=== PATIENT | female | born 1965 | race African-American/Black ===

== ENCOUNTER 2017-08-27 23:29 | Emergency (ER) | payer OTHER ==
[~2017-08-27] VITALS: Ht 170.2 cm; Wt 63.6 kg
[2017-08-27] MEDS ORDERED: schizo med PO (23:36)
[2017-08-28] MEDS ORDERED: HYDROCODONE/ACETAMINOPHEN 5-325 MG TABLET PO ONE (00:30)
[2017-08-28] MEDS ORDERED: IBUPROFEN 600 MG TABLET PO ONE (00:30)
[2017-08-28 01:34] VITALS: BP 135/74
== END 2017-08-28 01:30 | disposition home or self-care (01) ==
LOC: EMS 23:30
DX: S92.422A Displaced fracture of distal phalanx of left great toe, initial encounter for closed fracture (principal); F17.210 Nicotine dependence, cigarettes, uncomplicated; W19.XXXA Unspecified fall, initial encounter; Y93.89 Activity, other specified; Y92.89 Other specified places as the place of occurrence of the external cause; Y99.8 Other external cause status
CPT/HCPCS: 29540; 99284; 99406

== ENCOUNTER 2018-03-30 22:12 | Emergency (ER) | payer OTHER ==
[~2018-03-30] VITALS: Ht 170.2 cm; Wt 61.4 kg
[~2018-03-30 22:12] MED LIST: schizo med PO
[2018-03-31] MEDS ORDERED: BUPIVACAINE HCL/PF 0.25% 10 ML VIAL INJ ONE (00:15)
[2018-03-31] MEDS ORDERED: ACETAMINOPHEN 500 MG TABLET ONE (01:05)
[2018-03-31] MEDS ORDERED: ACETAMINOPHEN 500 MG TABLET PO ONE (01:15)
[2018-03-31 01:36] VITALS: BP 124/70
== END 2018-03-31 01:36 | disposition home or self-care (01) ==
LOC: EMS 22:13
DX: S43.402A Unspecified sprain of left shoulder joint, initial encounter (principal); S40.012A Contusion of left shoulder, initial encounter; L73.2 Hidradenitis suppurativa; F12.90 Cannabis use, unspecified, uncomplicated; F20.9 Schizophrenia, unspecified; F17.210 Nicotine dependence, cigarettes, uncomplicated; W19.XXXA Unspecified fall, initial encounter; Y93.89 Activity, other specified; Y92.89 Other specified places as the place of occurrence of the external cause; Y99.8 Other external cause status
CPT/HCPCS: 10060; 73030; 99284; 99406; J3490; 29240

== ENCOUNTER 2018-05-24 11:53 | Emergency (ER) | payer OTHER ==
[~2018-05-24] VITALS: Ht 170.2 cm; Wt 65.9 kg
[2018-05-24] MEDS ORDERED: HYDR-4455 PO (11:59)
[2018-05-24] MEDS ORDERED: GABA-529 PO (11:59)
[2018-05-24 13:27] LABS: BASOPHILS % (AUTO) 1.1 % (0.0-2.0); EOSINOPHILS % (AUTO) 1.1 % (1.0-6.0); HEMATOCRIT 35.1 % (36-46); HEMOGLOBIN 11.6 g/dL (12.0-16.0); LYMPHOCYTES # (AUTO) 2.1 K/uL (1.0-4.8); LYMPHOCYTES % (AUTO) 25.1 % (22.0-44.0); MEAN CORPUSCULAR HEMOGLOBIN 32.9 pg (26.0-34.0); MEAN CORPUSCULAR HGB CONC 33.1 G/dL (31.0-37.0); MEAN CORPUSCULAR VOLUME 99 fL (80-100); MONOCYTES # (AUTO) 0.8 K/uL (0.1-1.0); MONOCYTES % (AUTO) 10.1 % (2.0-9.0); NEUTROPHILS # (AUTO) 5.2 K/uL (1.8-7.7); NEUTROPHILS % (AUTO) 62.6 % (40.0-70.0); PLATELET COUNT (AUTO) 281 K/uL (150-450); RED BLOOD CELL COUNT(AUTO) 3.53 MIL/uL (4.00-5.20); RED CELL DISTRIBUTION WIDTH 13.6 % (11.5-14.5)
[2018-05-24 13:51] LABS: ANION GAP 10 mmol/L (8-16); CALCIUM, TOTAL 8.7 mg/dL (8.8-10.5); CARBON DIOXIDE 26 mmol/L (22-29); CHLORIDE 104 mmol/L (98-107); CREATININE 0.97 mg/dL (0.60-1.30); GLOMERULAR FILTR. RATE CALC > 60 mL/min (>60); GLUCOSE,RANDOM 114 mg/dL (70-110); POTASSIUM 3.7 mmol/L (3.5-5.1); SODIUM SERUM 140 mmol/L (136-145); UREA NITROGEN, BLOOD 14 mg/dL (7-18)
[2018-05-24 13:57] LABS: ALANINE AMINOTRANSFERASE 21 U/L (12-78); ALBUMIN 3.2 g/dL (3.4-5.0); ALKALINE PHOSPHATASE 74 U/L (46-116); ASPARTATE AMINOTRANSFERASE 23 U/L (15-37); BILIRUBIN,TOTAL 0.2 mg/dL (0.1-1.0); TOTAL PROTEIN, SERUM 7.9 g/dL (6.4-8.2)
[2018-05-24 15:11] VITALS: BP 134/76
== END 2018-05-24 15:28 | disposition home or self-care (01) ==
LOC: EMS 11:54
DX: S91.002A Unspecified open wound, left ankle, initial encounter (principal); L08.9 Local infection of the skin and subcutaneous tissue, unspecified; S90.512A Abrasion, left ankle, initial encounter; F17.210 Nicotine dependence, cigarettes, uncomplicated; F12.90 Cannabis use, unspecified, uncomplicated; Z98.890 Other specified postprocedural states; F20.9 Schizophrenia, unspecified; Z79.891 Long term (current) use of opiate analgesic; Z79.899 Other long term (current) drug therapy; X58.XXXA Exposure to other specified factors, initial encounter; Y93.89 Activity, other specified; Y92.89 Other specified places as the place of occurrence of the external cause; Y99.8 Other external cause status

== ENCOUNTER 2018-06-04 11:49 | Emergency (ER) | payer OTHER ==
[~2018-06-04] VITALS: Ht 170.2 cm; Wt 63.6 kg
[~2018-06-04 11:49] MED LIST changes: +GABA-529 PO; +HYDR-4455 PO
[2018-06-04] MEDS ORDERED: CEPHALEXIN MONOHYDRATE 500 MG CAPSULE PO ONE (12:30)
[2018-06-04] MEDS ORDERED: SULFAMETHOX/TRIMETH DS 800-160 MG/TABLET PO ONE (12:30)
[2018-06-04] MEDS ORDERED: KETOROLAC TROMETHAMINE 30 MG/ML VIAL IM ONE (12:30)
[2018-06-04 13:25] VITALS: BP 118/72
== END 2018-06-04 13:39 | disposition home or self-care (01) ==
LOC: EMS 11:49
DX: L03.116 Cellulitis of left lower limb (principal); F20.9 Schizophrenia, unspecified; F12.90 Cannabis use, unspecified, uncomplicated; F17.210 Nicotine dependence, cigarettes, uncomplicated; Z59.0 Homelessness
CPT/HCPCS: 93971; 96372; 99284; 99406; J1885

== ENCOUNTER 2019-05-28 14:52 | Emergency (ER) | payer OTHER ==
[~2019-05-28] VITALS: Ht 170.2 cm; Wt 68.2 kg
[2019-05-28 14:56] VITALS: BP 111/59
[2019-05-28] MEDS ORDERED: HYDROCODONE/ACETAMINOPHEN 5-325 MG TABLET PO ONE (17:00)
[2019-05-28] MEDS ORDERED: CEPHALEXIN MONOHYDRATE 500 MG CAPSULE PO ONE (17:00)
[2019-05-28] MEDS ORDERED: PERTUSS(ACELL),DIPH,TET VAC/PF 0.5 ML VIAL IM ONE (17:15)
== END 2019-05-28 17:25 | disposition left against medical advice (07) ==
LOC: EMS 14:53
DX: T23.292A Burn of second degree of multiple sites of left wrist and hand, initial encounter (principal); T31.0 Burns involving less than 10% of body surface; F17.210 Nicotine dependence, cigarettes, uncomplicated; F12.90 Cannabis use, unspecified, uncomplicated; F19.10 Other psychoactive substance abuse, uncomplicated; Z86.19 Personal history of other infectious and parasitic diseases; Z98.890 Other specified postprocedural states; Z79.899 Other long term (current) drug therapy; X08.8XXA Exposure to other specified smoke, fire and flames, initial encounter; Y93.89 Activity, other specified; Y92.89 Other specified places as the place of occurrence of the external cause; Y99.8 Other external cause status
CPT/HCPCS: 16000; 90471; 90715

== ENCOUNTER 2022-10-10 08:49 | Emergency (ER) | payer OTHER ==
[~2022-10-10] VITALS: Ht 172.7 cm; Wt 95.5 kg
[~2022-10-10 08:49] MED LIST changes: +GABA-1216 PO; -GABA-529 PO
[2022-10-10] MEDS ORDERED: KETOROLAC TROMETHAMINE 60 MG/2 ML VIAL IM ONE (11:00)
[2022-10-10] MEDS ORDERED: IBUP-1492 PO (13:00)
[2022-10-10 13:21] VITALS: BP 122/71
== END 2022-10-10 13:29 | disposition home or self-care (01) ==
LOC: EMS 08:51
DX: M25.551 Pain in right hip (principal); M25.561 Pain in right knee; F20.9 Schizophrenia, unspecified; K75.9 Inflammatory liver disease, unspecified; K85.90 Acute pancreatitis without necrosis or infection, unspecified; F17.210 Nicotine dependence, cigarettes, uncomplicated; F12.90 Cannabis use, unspecified, uncomplicated
CPT/HCPCS: 99284; 73521; 73562; 96372; J1885

== ENCOUNTER 2023-04-27 12:04 | Emergency (ER) | payer OTHER ==
[~2023-04-27] VITALS: Ht 167.6 cm; Wt 70.5 kg
[~2023-04-27 12:04] MED LIST changes: +IBUP-1492 PO
[2023-04-27 12:08] VITALS: TEMP 97.9
[2023-04-27] MEDS ORDERED: BACITRACIN 0.9 GM PACKET OINTMENT TP ONE (15:15)
[2023-04-27 15:38] LABS: APPEARANCE,URINE HAZY (CLEAR); BILIRUBIN,URINE NEGATIVE (NEGATIVE); COLOR,URINE LIGHT YELLOW (YELLOW); GLUCOSE, URINE (UA) NEGATIVE (NEGATIVE); KETONES,URINE NEGATIVE (NEGATIVE); LEUKOCYTE ESTERASE ,URINE LARGE (NEGATIVE); NITRATE,URINE POSITIVE (NEGATIVE); OCCULT BLOOD,URINE NEGATIVE (NEGATIVE); PH,URINE 6.5 (5.0-8.0); PROTEIN,URINE TRACE mg/dL (NEGATIVE); SPECIFIC GRAVITIY, URINE 1.009 (1.003-1.030)
[2023-04-27] MEDS ORDERED: SULF-261 PO (15:51)
[2023-04-27] MEDS ORDERED: SULFAMETHOX/TRIMETH DS 800-160 MG/TABLET PO ONE (16:00)
[2023-04-27 16:03] LABS: SQUAMOUS EPITHELIAL CELL,UR Few /LPF (None Seen)
[2023-04-27 16:04] LABS: BACTERIA,URINE Many /HPF (None Seen); RBC,URINE None Seen /HPF (0-2); WBC,URINE 26-50 /HPF (0-5)
[2023-04-27 16:47] LABS: COVID AG,FIA SOURCE NASAL SWAB
[2023-04-27 17:16] LABS: SARS-COV2 (COVID) ANTIGEN,FIA Negative (Negative)
[2023-04-27 17:40] VITALS: BP 141/85; PULSE 99; RESP 18
== END 2023-04-27 17:58 | disposition home or self-care (01) ==
LOC: EMS 12:10
DX: N39.0 Urinary tract infection, site not specified (principal); F20.9 Schizophrenia, unspecified; F17.210 Nicotine dependence, cigarettes, uncomplicated; F12.90 Cannabis use, unspecified, uncomplicated; Z98.890 Other specified postprocedural states; Z20.822 Contact with and (suspected) exposure to COVID-19
CPT/HCPCS: 81001; 87086; 87186; 87430; 99283

== ENCOUNTER 2024-03-24 00:31 | Emergency (ER) | payer OTHER ==
[~2024-03-24] VITALS: Ht 170.2 cm; Wt 69.5 kg
[~2024-03-24 00:31] MED LIST changes: -GABA-1216 PO; -HYDR-4455 PO; -IBUP-1492 PO; +SULF-261 PO; -schizo med PO
[2024-03-24 00:54] VITALS: BP 141/84; PULSE 85; RESP 18; TEMP 98.3; O2SAT 100
[2024-03-24] MEDS: LIDOCAINE 5% TRANSDERMAL PATCH TD ONE (04:38)
[2024-03-24] MEDS: TraMADol HCL 50 MG TABLET PO ONE (04:38)
[2024-03-24] MEDS: KETOROLAC TROMETHAMINE 30 MG/ML VIAL IM ONE (04:38)
[2024-03-24] MEDS ORDERED: CYCL-448 PO (05:19)
== END 2024-03-24 06:13 | disposition home or self-care (01) ==
LOC: EMS 00:31
DX: S32.10XA Unspecified fracture of sacrum, initial encounter for closed fracture (principal); F20.9 Schizophrenia, unspecified; F17.210 Nicotine dependence, cigarettes, uncomplicated; F12.90 Cannabis use, unspecified, uncomplicated; Z98.890 Other specified postprocedural states; Z88.6 Allergy status to analgesic agent; W19.XXXA Unspecified fall, initial encounter; Y93.89 Activity, other specified; Y92.89 Other specified places as the place of occurrence of the external cause; Y99.8 Other external cause status
CPT/HCPCS: 99283; 72100; 96372; J1885

== ENCOUNTER 2024-04-18 09:32 | Emergency (ER) | payer OTHER ==
[~2024-04-18] VITALS: Ht 167.6 cm; Wt 72.7 kg
[~2024-04-18 09:32] MED LIST changes: +CYCL-448 PO
[2024-04-18 09:36] VITALS: TEMP 98.5
[2024-04-18] MEDS ORDERED: HYDR-4069 PO (09:37)
[2024-04-18] MEDS: BACITRACIN 0.9 GM PACKET OINTMENT TP ONE (10:07)
[2024-04-18] MEDS: OxyCODONE HCL/ACETAMINOPHEN 5-325 MG TABLET PO ONE (10:07)
[2024-04-18] MEDS: LIDOCAINE 1% 10 ML VIAL SQ ONE (10:07)
[2024-04-18] MEDS: IBUPROFEN 600 MG TABLET PO ONE (10:07)
[2024-04-18] MEDS: PERTUSS(ACELL),DIPH,TET/PF 0.5 ML SYRINGE [ADULT] IM. ONE (10:08)
[2024-04-18] MEDS: LIDOCAINE 2% 6 ML JELLY TP ONE (11:55)
[2024-04-18 13:22] VITALS: BP 135/77; PULSE 61; RESP 14; O2SAT 97
[2024-04-18] MEDS ORDERED: HYDR-4072 PO ×2 (14:07→17:53)
[2024-04-18] MEDS ORDERED: IBUP-1554 PO (14:07)
[2024-04-18] MEDS ORDERED: BACI28.410 TP (14:07)
== END 2024-04-18 15:15 | disposition home or self-care (01) ==
LOC: EMS 09:32
DX: S01.01XA Laceration without foreign body of scalp, initial encounter (principal); S61.211A Laceration without foreign body of left index finger without damage to nail, initial encounter; F17.210 Nicotine dependence, cigarettes, uncomplicated; F12.90 Cannabis use, unspecified, uncomplicated; R41.82 Altered mental status, unspecified; Z88.6 Allergy status to analgesic agent; W26.8XXA Contact with other sharp object(s), not elsewhere classified, initial encounter; Y93.89 Activity, other specified; Y92.89 Other specified places as the place of occurrence of the external cause; Y99.8 Other external cause status
CPT/HCPCS: 99285; 70450; 73130; 72125; 90715; 90471; 12002; J3490